=== PATIENT | female | born 1945 | race Caucasian/White ===

== ENCOUNTER 2017-05-29 12:15 | Emergency (ER) | payer OTHER, MEDICARE ==
[~2017-05-29] VITALS: Ht 172.7 cm; Wt 142.9 kg
[~2017-05-29 12:15] MED LIST: AMLODIPINE BESY10 MG PO; ANTIVERT25 MG PO; ASPIRIN81 M2 PO; BUMETANIDE0.25 MG/1 IM; CEFDINIR300 MG PO; CENTRUM SILVER1 EAC4 PO; CLONAZEPAM 0.50.5 M1 PO; COZAAR 50 MG TA50 M2 PO; CYTOMEL 25 MCG25 MC1 PO; FARXIGA PO; FARXIGA10 MG PO; LANTUS SOL100 UNIT/1 INJECTION; LANTUS SOL100 UNIT/1 SQ; NORVASC10 MG PO; OMEGA-31000 M1 PO; PAXIL 20 MG TAB20 M1 PO; PAXIL10 MG PO; POTASSIUM20 PO; QUINU10 PD PO; ROSUVASTATIN CA20 MG PO; TOPROL XL50 MG PO; VERAPAMIL ER240 M1 PO
[2017-05-29] MEDS ORDERED: VERAPAMIL E.R240 M1 PO (12:27)
[2017-05-29] MEDS ORDERED: LANTUS SOL100 UNIT/1 SUBQ (12:28)
[2017-05-29] MEDS ORDERED: PIOGLITAZONE15 MG (12:28)
[2017-05-29 13:04] LABS: ABSOLUTE BASOPHILS 0.1 thou/uL (0.0-0.2); ABSOLUTE EOSINOPHILS 0.4 thou/uL (0.0-0.7); ABSOLUTE NEUTROPHILS 6.2 thou/uL (1.6-8.1); EOSINOPHILS 3.6 %; HEMATOCRIT 35.5 % (37.0-47.0); LYMPHOCYTES 20.5 %; MCH 29.1 pg (26.0-34.0); MCHC 33.7 g/dL (28.0-37.0); MCV 86.5 fL (80.0-100.0); MONOCYTES 10.3 %; MPV 6.9 fl. (7.2-11.1); NUCLEATED RBCS 0 /100WBC; PLATELET COUNT* 337 thou/uL (150-400); POLYS 64.6 %; RDW-CV 15.7 % (10.5-14.5); WBC 9.7 thou/uL (4.0-11.0)
[2017-05-29 13:10] LABS: CALCIUM 8.7 mg/dL (8.5-10.1); CREATININE 1.5 mg/dL (0.6-1.3)
[2017-05-29 13:11] LABS: URINE BILIRUBIN NEGATIVE (Negative); URINE BLOOD NEGATIVE (Negative); URINE COLOR YELLOW; URINE GLUCOSE-RANDOM NEGATIVE (Negative); URINE KETONES NEGATIVE (Negative); URINE PROTEIN TRACE (Negative); URINE SPECIFIC GRAVITY 1.025 (1.005-1.030); URINE UROBILINOGEN 0.2 E.U./dl (0.2-1.0)
[2017-05-29 13:12] LABS: URINE CLARITY HAZY; URINE LEUKOCYTES-REFLEX 2+ (Negative); URINE NITRITE-REFLEX POSITIVE (Negative)
[2017-05-29 13:16] LABS: BACTERIA-REFLEX >30 Many /HPF (None Seen); CASTS None Seen /LPF (None Seen); SQUAMOUS >10 Many /LPF (0-3); URINE RBC None Seen /HPF (0-2); URINE WBC-REFLEX >25 Many /HPF (0-5)
[2017-05-29 13:17] LABS: CRYSTALS None Seen /LPF (None Seen)
[2017-05-29 13:22] LABS: ALBUMIN 3.2 g/dL (3.4-5.0); TOTAL BILIRUBIN 0.7 mg/dL (<0.1-1.0); TOTAL PROTEIN 8.3 g/dL (6.4-8.2)
[2017-05-29] MEDS ORDERED: MACROBID 100 M100 M2 PO (14:16)
[2017-05-29] MEDS ORDERED: KLOR-CON 1010 MEQ PO (14:16)
[2017-05-29 14:44] VITALS: BP 131/38
--- NOTE | 2017-05-30 17:14 | EKG ---
[place] [address] ELECTROCARDIOGRAM REPORT Name: ANGELA MARI Room: [facility]#: [id number] Admission: 05/29/17 Attend Phys: Discharge: 05/29/17 Date of : 45 Report #: [id number] THIS REPORT FOR: //name// [facility] ED Test Date: 2017-05-29 Test Time: 13:48:53 Pat Name: ANGELA [facility] Department: Room: Gender: F Utility Operator Yarn: : 1945 Requested By: Brando Tillman Order Number: [id number] MD: Garfield Figueredo Measurements Intervals [place] Rate: 57 P: 14 CT: 209 QRS: 35 QRSD: 109 T: 32 QT: 471 QTc: 459 Interpretive Statements Sinus rhythm Incomplete left bundle branch block Compared to ECG 03/13/2017 10:05:48 Left bundle-branch block now present Electronically Signed On 05-30-2017 17:14:31 DIRECTOR MARKET RESEARCH by Garfield Figueredo [email or web address] <ELECTRONICALLY SIGNED> By: Garfield Figueredo MD, [facility] 05/30/17 1714 1348 Garfield Figueredo MD, FACC /EPI
== END 2017-05-29 14:45 | disposition home or self-care (01) ==
LOC: M.ERS 12:15
PROVIDERS: Nurse Practitioner Psychiatric/Mental Health
DX: N30.01 Acute cystitis with hematuria (principal); R53.82 Chronic fatigue, unspecified; E87.6 Hypokalemia; E11.9 Type 2 diabetes mellitus without complications; E89.0 Postprocedural hypothyroidism; Z90.710 Acquired absence of both cervix and uterus; Z88.5 Allergy status to narcotic agent; Z91.040 Latex allergy status; Z88.0 Allergy status to penicillin; Z88.2 Allergy status to sulfonamides

== ENCOUNTER 2019-03-21 13:28 | Inpatient (IN) | payer MEDICARE, OTHER ==
[~2019-03-21] VITALS: Ht 172.7 cm; Wt 151.5 kg
[~2019-03-21 13:28] MED LIST changes: +COZAAR 50 MG TA50 M1 PO; -COZAAR 50 MG TA50 M2 PO; +KLOR-CON 1010 MEQ PO; +LANTUS SOL100 UNIT/1 SUBQ; +MACROBID 100 M100 M2 PO; +PIOGLITAZONE15 MG; +VERAPAMIL E.R240 M1 PO
[2019-03-21 13:29] VITALS: BP 215/62
[2019-03-21] MEDS ORDERED: PLAVIX 75 MG TA75 MG PO (13:38)
[2019-03-21] MEDS ORDERED: RESTASIS1 EACH OPHTHALMIC (13:38)
[2019-03-21] MEDS ORDERED: LEVOXYL137 MCG PO (13:38)
[2019-03-21] MEDS ORDERED: SYMBICORT80 MCG/4.1 INH (13:39)
[2019-03-21] MEDS ORDERED: VENTOLIN HFA 1818 GM INH (13:39)
[2019-03-21] MEDS ORDERED: CO Q-1010 MG PO (13:39)
[2019-03-21 14:16] LABS: ABSOLUTE BASOPHILS 0.1 thou/uL (0.0-0.2); ABSOLUTE EOSINOPHILS 0.3 thou/uL (0.0-0.7); ABSOLUTE LYMPHOCYTES 1.4 thou/uL (0.8-5.3); ABSOLUTE MONOCYTES 0.6 thou/uL (0.0-1.2); ABSOLUTE NEUTROPHILS 5.6 thou/uL (1.6-8.1); BASOPHILS 1.2 %; EOSINOPHILS 3.6 %; HEMATOCRIT 36.5 % (37.0-47.0); HEMOGLOBIN 12.3 gm/dL (12.0-15.0); LYMPHOCYTES 17.7 %; MCH 28.5 pg (26.0-34.0); MCHC 33.7 g/dL (28.0-37.0); MCV 84.4 fL (80.0-100.0); MONOCYTES 7.9 %; MPV 6.8 fl. (7.2-11.1); NUCLEATED RBCS 0 /100WBC; PLATELET COUNT* 302 thou/uL (150-400); POLYS 69.6 %; RBC 4.32 mil/uL (4.20-5.00); RDW-CV 15.4 % (10.5-14.5)
[2019-03-21 14:24] LABS: CALCIUM 8.9 mg/dL (8.5-10.1); CREATININE 0.9 mg/dL (0.6-1.3); POTASSIUM 4.5 mmol/L (3.5-5.1)
[2019-03-21 14:27] LABS: APTT 28.5 Seconds (25.0-31.3); INR 1.1; PROTIME 10.8 Seconds (9.20-11.50)
[2019-03-21 14:34] LABS: ALBUMIN 3.3 g/dL (3.4-5.0); TOTAL BILIRUBIN 0.5 mg/dL (<0.1-1.0); TOTAL PROTEIN 7.8 g/dL (6.4-8.2)
[2019-03-21 16:22] LABS: URINE BILIRUBIN NEGATIVE (Negative); URINE BLOOD TRACE (Negative); URINE CLARITY CLEAR; URINE COLOR YELLOW; URINE GLUCOSE-RANDOM NEGATIVE (Negative); URINE KETONES NEGATIVE (Negative); URINE LEUKOCYTES-REFLEX TRACE (Negative); URINE PROTEIN 1+ (Negative); URINE UROBILINOGEN 0.2 E.U./dl (0.2-1.0)
[2019-03-21 16:23] LABS: URINE NITRITE-REFLEX POSITIVE (Negative)
[2019-03-21 16:27] LABS: SQUAMOUS >10 Many /LPF (0-3)
[2019-03-21 16:28] LABS: WBC CLUMPS Few (None Seen)
[2019-03-21 16:29] LABS: BACTERIA-REFLEX >30 Many /HPF (None Seen); CASTS None Seen /LPF (None Seen); CRYSTALS None Seen /LPF (None Seen); MUCUS None Seen strn/LPF (None Seen); URINE RBC 0-2 Rare /HPF (0-2)
[2019-03-21 16:52] VITALS: BP 166/50
[2019-03-21 20:00] VITALS: BP 153/62
[2019-03-22] VITALS (7 sets, daily range): BP systolic 139–157; BP diastolic 40–66
--- NOTE | 2019-03-22 02:08 | NUR ---
ASSUMED CARE OF PT AFTER REPORT AT 1930. PT A&OX4. VSS. PHYSICAL ASSESSMENT COMPLETED AND CHARTED. PT ON RA. PT TRACING SR ON TELE. PT UP WITH 1-2 ASSIST. PT COMPLAINED OF HEADACHE-MEDS GIVEN PER MAR. PT STILL COMPLAINED OF DIZZINESS. PT ABLE TO SLEEP WELL ON BED. CALL LIGHT WITHIN REACH.
[2019-03-22 04:37] LABS: ABSOLUTE BASOPHILS 0.1 thou/uL (0.0-0.2); ABSOLUTE EOSINOPHILS 0.1 thou/uL (0.0-0.7); ABSOLUTE LYMPHOCYTES 1.6 thou/uL (0.8-5.3); ABSOLUTE MONOCYTES 0.8 thou/uL (0.0-1.2); ABSOLUTE NEUTROPHILS 5.3 thou/uL (1.6-8.1); BASOPHILS 0.8 %; EOSINOPHILS 1.9 %; HEMATOCRIT 32.7 % (37.0-47.0); HEMOGLOBIN 11.2 gm/dL (12.0-15.0); LYMPHOCYTES 19.8 %; MCHC 34.3 g/dL (28.0-37.0); MCV 84.4 fL (80.0-100.0); MONOCYTES 9.7 %; MPV 6.8 fl. (7.2-11.1); NUCLEATED RBCS 0 /100WBC; PLATELET COUNT* 322 thou/uL (150-400); POLYS 67.8 %; RBC 3.87 mil/uL (4.20-5.00); RDW-CV 15.3 % (10.5-14.5); WBC 7.9 thou/uL (4.0-11.0)
[2019-03-22 05:05] LABS: CALCIUM 8.6 mg/dL (8.5-10.1); POTASSIUM 4.6 mmol/L (3.5-5.1)
--- NOTE | 2019-03-22 17:11 | NUR ---
PT CARE ASSUMED AT 0730. SAT MAINTAINED IN RA. ALERT AND ORIENTED X4. CALL LIGHT WITHIN REACH AND BED IN LOW POSITION. DENIES PAIN AND SOB. HAD AN EPISODE OF DIZZINESS THIS AM. DENIES ANY OTHER EPISODES AFTER THAT. CALL LIGHT WITHIN REACH AND BED IN LOW POSITION. HOURLY ROUNDING DONE FOR PT SAFETY.
[2019-03-23 02:05] LABS: GLYCOHEMOGLOBIN (HGB A1C) 7.2 % (4.8-5.6)
[2019-03-23 03:45] VITALS: BP 153/75
[2019-03-23 05:17] LABS: CHOLESTEROL 126 mg/dL (<200); HDL CHOLESTEROL 41 mg/dL (>40); LDL CHOLESTEROL 59 mg/dL (<100); TC:HDL 3.1 Ratio (Not establshd); TRIGLYCERIDE 134 mg/dL (<150); VLDL 27 mg/dL (<40)
[2019-03-23 05:19] LABS: SERUM ASSESSMENT Clear
--- NOTE | 2019-03-23 07:38 | NUR ---
Pt is AOx4, runing SR with PVCs/PACs, respirations are even and unlabored. Pt is not in acute distress at this time.
--- NOTE | 2019-03-23 08:00 | NUR ---
ASSUMED CARE AFTER REPORT APPROX 0730. A&OX4, ABLE TO COMMUNICATE NEEDS TO STAFF. LABORER LABORATORY IN PLACE, SR. CALL LIGHT IN REACH. HOURLY ROUNDING FOR SAFETY/NEEDS.
[2019-03-23 09:00] VITALS: BP 157/45
[2019-03-23 12:07] VITALS: BP 185/63
[2019-03-23 12:59] VITALS: BP 185/63
[2019-03-23] MEDS ORDERED: MECLIZINE HCL25 M1 PO (13:37)
--- NOTE | 2019-03-23 14:22 | EKG ---
[place] [address] ELECTROCARDIOGRAM REPORT Name: KATHERINE MARI Room: [address] ADM IN .R.#: [id number] Admission: 03/21/19 Attend Phys: Stoney Sue MD Discharge: Date of : 45 Report #: [id number] THIS REPORT FOR: //name// [facility] ED Test Date: 2019-03-21 Test Time: 13:46:42 Pat Name: KATHERINE KAMALJIT Department: Room: [facility] Gender: F Belting Inspector: DAMION : 1945 Requested By: Cory Webb Order Number: [id number] MD: Watson Padilla Measurements Intervals [place] Rate: 62 P: 63 CT: 192 QRS: 43 QRSD: 107 T: 47 QT: 434 QTc: 441 Interpretive Statements Sinus rhythm Low voltage, precordial leads Baseline wander in lead(s) I,III,aVL,aVF Compared to ECG 05/29/2017 13:48:53 Low QRS voltage now present Electronically Signed On 03-23-2019 14:22:15 MAPPING EDITOR by Watson Padilla [email or web address] <ELECTRONICALLY SIGNED> By: Watson Padilla MD, FAC 03/23/19 1422 1346 1346 Watson Padilla MD, [facility] /EPI
--- NOTE | 2019-03-23 14:30 | NUR ---
PATIENT WITH COMPLETE DC ORDER. REVIEWED DC INSTRUCTIONS AND MEDICATION LIST WITH PATIENT. ANSWERED QUESTIONS TO PATIENT SATISFACTION. IV AND CASH PROCESSING SPECIALIST DISCONTINUED. CASH PROCESSING SPECIALIST REMOVED, CLEANED AND PLACED IN POCKET FOR ROOM 230. PATIENT IN POSSESSION OF ALL BELONGINGS. VOLUNTEER STAFF MEMBER TRANSPORTED PATIENT VIA WC TO HOSPITAL FRONT ENTRANCE. PATIENT FAMILY MEMBER TO TRANSPORT HOME VIA CAR.
== END 2019-03-23 14:45 | disposition home or self-care (01) | DRG 305 ==
LOC: M.ERS 13:28 → M.TBA-ER 16:23 → M.2W 16:23
PROVIDERS: Family Medicine; ADMIT Internal Medicine
DX: I16.0 Hypertensive urgency (principal); Z68.43 Body mass index [BMI] 50.0-59.9, adult; I65.23 Occlusion and stenosis of bilateral carotid arteries; R51 Headache; E11.9 Type 2 diabetes mellitus without complications; E89.0 Postprocedural hypothyroidism; J44.9 Chronic obstructive pulmonary disease, unspecified; E66.01 Morbid (severe) obesity due to excess calories; I25.10 Atherosclerotic heart disease of native coronary artery without angina pectoris; H81.12 Benign paroxysmal vertigo, left ear; I10 Essential (primary) hypertension; Z79.82 Long term (current) use of aspirin; Z79.4 Long term (current) use of insulin; Z90.710 Acquired absence of both cervix and uterus; Z98.41 Cataract extraction status, right eye; Z98.42 Cataract extraction status, left eye; I25.2 Old myocardial infarction; Z87.891 Personal history of nicotine dependence; Z79.899 Other long term (current) drug therapy; Z88.5 Allergy status to narcotic agent; Z88.0 Allergy status to penicillin; Z88.2 Allergy status to sulfonamides; Z88.8 Allergy status to other drugs, medicaments and biological substances; Z91.040 Latex allergy status

== ENCOUNTER 2021-01-04 13:44 | Emergency (ER) | payer MEDICARE, OTHER ==
[~2021-01-04] VITALS: Ht 172.7 cm; Wt 136.1 kg
[~2021-01-04 13:44] MED LIST changes: +CO Q-1010 MG PO; +LEVOXYL137 MCG PO; +MECLIZINE HCL25 M1 PO; +PLAVIX 75 MG TA75 MG PO; +RESTASIS1 EACH OPHTHALMIC; +SYMBICORT80 MCG/4.1 INH; +VENTOLIN HFA 1818 GM INH
[2021-01-04] MEDS ORDERED: NORVASC10 MG PO (14:02)
[2021-01-04] MEDS ORDERED: FUROSEMIDE 20 M20 MG PO (14:02)
[2021-01-04 14:51] LABS: HEMATOCRIT 32.8 % (37.0-47.0); MCH 27.7 pg (26.0-34.0); MCHC 33.5 g/dL (28.0-37.0); MCV 82.8 fL (80.0-100.0); MPV 6.6 fl. (7.2-11.1); RBC 3.97 mil/uL (4.20-5.00); RDW-CV 15.5 % (10.5-14.5); WBC 8.8 thou/uL (4.0-11.0)
[2021-01-04 14:57] LABS: CALCIUM 8.3 mg/dL (8.5-10.1); CREATININE 1.2 mg/dL (0.6-1.3); POTASSIUM 4.4 mmol/L (3.5-5.1)
[2021-01-04] MEDS ORDERED: DIAZEPAM 2MG TAB2 MG PO (16:22)
[2021-01-04] MEDS ORDERED: ZOFRAN ODT4 MG DISSOLVE (16:22)
[2021-01-04] MEDS ORDERED: DOXYCYCLINE 10100 M2 PO (16:22)
[2021-01-04 16:39] VITALS: BP 134/47
--- NOTE | 2021-01-05 12:38 | EKG ---
[place] [address] ELECTROCARDIOGRAM REPORT Name: KATHERINE MARI Room: [facility]#: [id number] Admission: 01/04/21 Attend Phys: Discharge: 01/04/21 Date of : 45 Date of Service: 01/04/21 1427 Report #: [id number] THIS REPORT FOR: //name// [facility] ED Test Date: 2021-01-04 Test Time: 14:27:13 Pat Name: KATHERINE MARI Department: Room: Gender: F Lead Military Analyst: : 1945 Requested By: Brando Tillman Order Number: [id number] MD: Garfield Figueredo Measurements Intervals [place] Rate: 64 P: 3 [place]: 196 QRS: 15 QRSD: 100 T: 10 QT: 428 QTc: 442 Interpretive Statements Sinus rhythm Low voltage, precordial leads Borderline T abnormalities, inferior leads Compared to ECG 03/21/2019 13:46:42 T-wave abnormality now present Electronically Signed On 01-05-2021 12:38:23 CDT by Garfield Figueredo [email or web address] <ELECTRONICALLY SIGNED> By: Garfield Figueredo MD, FACC 01/05/21 1238 1427 1427 Garfield Figueredo MD, [facility] /EPI
== END 2021-01-04 16:41 | disposition home or self-care (01) ==
LOC: M.ERS 13:44
PROVIDERS: Emergency Medicine Emergency Medical Services
DX: H81.09 Meniere's disease, unspecified ear (principal); J32.9 Chronic sinusitis, unspecified; E11.9 Type 2 diabetes mellitus without complications; J44.9 Chronic obstructive pulmonary disease, unspecified; Z90.710 Acquired absence of both cervix and uterus; Z90.89 Acquired absence of other organs; Z79.82 Long term (current) use of aspirin; Z79.4 Long term (current) use of insulin; Z79.899 Other long term (current) drug therapy; Z88.0 Allergy status to penicillin; Z88.2 Allergy status to sulfonamides; Z91.040 Latex allergy status; Z88.5 Allergy status to narcotic agent

== ENCOUNTER 2021-05-29 16:53 | Emergency (ER) | payer MEDICARE, OTHER ==
[~2021-05-29] VITALS: Ht 167.6 cm; Wt 154.2 kg
[~2021-05-29 16:53] MED LIST changes: +DIAZEPAM 2MG TAB2 MG PO; +DOXYCYCLINE 10100 M2 PO; +FUROSEMIDE 20 M20 MG PO; +ZOFRAN ODT4 MG DISSOLVE
[2021-05-29 17:51] LABS: ABSOLUTE BASOPHILS 0.1 thou/uL (0.0-0.2); ABSOLUTE EOSINOPHILS 0.2 thou/uL (0.0-0.7); ABSOLUTE LYMPHOCYTES 1.9 thou/uL (0.8-5.3); ABSOLUTE MONOCYTES 0.8 thou/uL (0.0-1.2); ABSOLUTE NEUTROPHILS 3.7 thou/uL (1.6-8.1); BASOPHILS 0.9 %; EOSINOPHILS 3.5 %; HEMATOCRIT 31.8 % (37.0-47.0); HEMOGLOBIN 10.3 gm/dL (12.0-15.0); MCH 25.7 pg (26.0-34.0); MCHC 32.4 g/dL (28.0-37.0); MCV 79.3 fL (80.0-100.0); MONOCYTES 11.6 %; MPV 6.8 fl. (7.2-11.1); NUCLEATED RBCS 0 /100WBC; PLATELET COUNT* 321 thou/uL (150-400); RBC 4.01 mil/uL (4.20-5.00); RDW-CV 17.2 % (10.5-14.5); WBC 6.7 thou/uL (4.0-11.0)
[2021-05-29 18:07] LABS: CALCIUM 8.2 mg/dL (8.5-10.1)
[2021-05-29 18:19] LABS: ALBUMIN 3.3 g/dL (3.4-5.0); TOTAL BILIRUBIN 0.4 mg/dL (<0.1-1.0); TOTAL PROTEIN 7.7 g/dL (6.4-8.2)
[2021-05-29 19:12] LABS: URINE BILIRUBIN NEGATIVE (Negative); URINE BLOOD NEGATIVE (Negative); URINE CLARITY CLEAR; URINE COLOR YELLOW; URINE GLUCOSE-RANDOM NEGATIVE (Negative); URINE KETONES NEGATIVE (Negative); URINE LEUKOCYTES-REFLEX NEGATIVE (Negative); URINE NITRITE-REFLEX NEGATIVE (Negative); URINE PROTEIN NEGATIVE (Negative); URINE SPECIFIC GRAVITY 1.015 (1.005-1.030); URINE UROBILINOGEN 0.2 E.U./dl (0.2-1.0)
[2021-05-29 20:33] VITALS: BP 167/73
--- NOTE | 2021-05-30 11:32 | EKG ---
[place] [address] ELECTROCARDIOGRAM REPORT Name: KATHERINE MARI Room: [facility]#: [id number] Admission: 05/29/21 Attend Phys: Discharge: 05/29/21 Date of : 45 Date of Service: 05/29/211750 Report #: [id number] THIS REPORT FOR: //name// [facility] ED Test Date: 2021-05-29 Test Time: 17:51:07 Pat Name: KATHERINE MARI Department: Room: Gender: F Retail Sales Clerk: : 1945 Requested By: Bubba Betancourt Order Number: [id number] MD: Watson Padilla Measurements Intervals [place] Rate: 60 P: 5 [place]: 55 QRS: 23 QRSD: 98 T: 12 QT: 438 QTc: 438 Interpretive Statements Sinus rhythm Compared to ECG 01/04/2021 14:27:13 T-wave abnormality no longer present Electronically Signed On 05-30-2021 11:32:09 MEN'S GARMENT FITTER by Watson Padilla [email or web address] <ELECTRONICALLY SIGNED> By: Watson Padilla MD, [facility] 05/30/21 1132 1751 175 Watson Padilla MD, [facility] /EPI
== END 2021-05-29 20:30 | disposition home or self-care (01) ==
LOC: M.ERS 16:53
PROVIDERS: Physician Assistant Medical
DX: R10.11 Right upper quadrant pain (principal); E11.9 Type 2 diabetes mellitus without complications; I10 Essential (primary) hypertension; I25.2 Old myocardial infarction; J44.9 Chronic obstructive pulmonary disease, unspecified; Z90.710 Acquired absence of both cervix and uterus; Z90.89 Acquired absence of other organs; Z98.890 Other specified postprocedural states; Z79.82 Long term (current) use of aspirin; Z79.4 Long term (current) use of insulin; Z79.51 Long term (current) use of inhaled steroids; Z79.899 Other long term (current) drug therapy; Z88.5 Allergy status to narcotic agent; Z88.2 Allergy status to sulfonamides; Z88.0 Allergy status to penicillin; Z91.040 Latex allergy status; Z88.8 Allergy status to other drugs, medicaments and biological substances